=== PATIENT | female | born 1940 | race African-American/Black ===

== ENCOUNTER 2018-03-06 16:50 | Inpatient (IN) ==
[2018-03-06] MEDS ORDERED: MORPHINE 4 MG/1 ML VIAL IV STA (17:11)
[2018-03-06] MEDS ORDERED: ONDANSETRON 4 MG/2 ML VIAL IV STA (17:11)
[2018-03-06 17:30] LABS: Basophils % 0.3 % (0.0-0.8); Eosinophils # 0.1 10*3/uL (0.0-0.87); Eosinophils % 1.5 % (0.00-10.9); Hematocrit 39.9 VOL% (35.7-47.0); Hemoglobin 12.8 GM/DL (12.0-16.0); Immature Granulocytes % 0.4 %; Immature Granulocytes Absolute 0.03 #; Lymphocytes # 2.2 10*3/uL (1.4-4.0); Lymphocytes % 29.2 % (21.3-54.2); Mean Corpuscular HGB Conc 32.1 GM/DL (32-36); Mean Corpuscular Hemoglobin 30 PG (27-34); Mean Corpuscular Volume 94.8 FL (87-102); Mean Platelet Volume 9.5 FL (9.6-12.0); Monocytes # 0.5 10*3/uL (0.11-0.8); Monocytes % 7.3 % (1.7-12.7); Neutrophils # 4.5 10*3/uL (1.4-7.4); Neutrophils % 61.3 % (38.7-73.9); Platelet Count 286 T/CUMM (130-400); Red Blood Count 4.21 MC/CUMM (3.8-5.5); Red Cell Distribution Width 12.3 % (9.3-17.3); White Blood Count 7.4 T/CUMM (4-12)
[2018-03-06 17:39] LABS: PT Patient Result 10.1 SECS
[2018-03-06 17:47] LABS: Calcium 9.1 MG/DL (8.5-10.1); Osmolality,Calculated 280.3 MOS/KG (273-304); Potassium 4.2 MMOL/L (3.5-5.1)
[2018-03-06 17:54] LABS: Apearance,Urine CLEAR (Clear); Bacteria,Urine Occasional /HPF (Few); Bilirubin,Urine Negative (Negative); Blood, Urine Negative (Negative); Glucose,Urine (UA) Negative (Negative); Ketones,Urine Negative (Negative); Mucus,Urine Occasional /LPF (Occasional); Nitrite,Urine Negative (Negative); Protein,Urine Negative; RBC,Urine 4 /HPF (0-4); Urine Color Yellow (Yellow); Urine Specific Gravity 1.014 (1.001-1.035); WBC,Urine 1 /HPF (0-6)
[2018-03-06] MEDS ORDERED: ACETAMINOPHEN 325 MG TABLET PO PRN (20:01)
[2018-03-06] MEDS ORDERED: LACTULOSE 20 GM/30 ML UDCUP PO PRN (20:01)
[2018-03-06] MEDS ORDERED: DOCUSATE SODIUM 100 MG CAPSULE PO PRN (20:01)
[2018-03-06] MEDS ORDERED: ONDANSETRON 4 MG/2 ML VIAL IV PRN (20:01)
[2018-03-06] MEDS ORDERED: BISACODYL 5 MG TABLET PO PRN (20:01)
[2018-03-06] MEDS: MORPHINE 4 MG/1 ML VIAL IV PRN (20:23)
[2018-03-06] MEDS: ALBUTEROL/IPRATROPIUM 3 ML NEB RESP TX SCH ×2 (20:27→23:04)
[2018-03-06] MEDS ORDERED: DORZOLAMIDE/TIMOLOL OPH SOLN 10 ML BOTTLE LEFT EYE SCH (21:00)
[2018-03-06] MEDS: CYCLOBENZAPRINE 10 MG TABLET PO SCH (22:09)
[2018-03-06] MEDS: NORTRIPTYLINE 25 MG CAPSULE PO SCH (22:09)
[2018-03-06] MEDS: busPIRone 10 MG TABLET PO SCH (22:09)
[2018-03-06] MEDS: PANTOPRAZOLE 20 MG TABLET PO SCH (22:09)
[2018-03-06] MEDS: SIMVASTATIN 80 MG TABLET PO SCH (22:09)
[2018-03-06] MEDS: GABAPENTIN 300 MG CAPSULE PO SCH (22:09)
[2018-03-06] MEDS: BRIMONIDINE 0.2% OPH SOLN 5 ML BOTTLE LEFT EYE SCH (22:10)
[2018-03-06] MEDS: LATANOPROST 0.005% OPH SOLN 2.5 ML BOTTLE LEFT EYE SCH (22:10)
[2018-03-06] MEDS: SODIUM CHLORIDE 0.45% 1,000 ML IV SCH (22:11)
[2018-03-07] MEDS: ALBUTEROL/IPRATROPIUM 3 ML NEB RESP TX SCH ×5 (03:09→19:53)
[2018-03-07] MEDS: MORPHINE 4 MG/1 ML VIAL IV PRN (04:35)
[2018-03-07] MEDS: SODIUM CHLORIDE 0.45% 1,000 ML IV SCH ×4 (04:54→21:10)
[2018-03-07] MEDS ORDERED: PANTOPRAZOLE 40 MG TABLET PO SCH (09:00)
[2018-03-07] MEDS: PANTOPRAZOLE 20 MG TABLET PO SCH ×2 (09:19→21:00)
[2018-03-07] MEDS: FAMOTIDINE 20 MG TABLET PO SCH (09:19)
[2018-03-07] MEDS: busPIRone 10 MG TABLET PO SCH ×2 (09:19→21:00)
[2018-03-07] MEDS: CYCLOBENZAPRINE 10 MG TABLET PO SCH ×3 (09:19→21:00)
[2018-03-07] MEDS: DILTIAZEM CD 240 MG CAPSULE PO SCH (09:19)
[2018-03-07] MEDS: NICOTINE 21 MG/24 HR PATCH TRANSDERM SCH (09:20)
[2018-03-07] MEDS: BRIMONIDINE 0.2% OPH SOLN 5 ML BOTTLE LEFT EYE SCH ×3 (09:21→20:59)
[2018-03-07] MEDS: GABAPENTIN 300 MG CAPSULE PO SCH (20:59)
[2018-03-07] MEDS: NORTRIPTYLINE 25 MG CAPSULE PO SCH (20:59)
[2018-03-07] MEDS: LATANOPROST 0.005% OPH SOLN 2.5 ML BOTTLE LEFT EYE SCH (20:59)
[2018-03-07] MEDS: SIMVASTATIN 80 MG TABLET PO SCH (21:00)
[2018-03-08] MEDS: ALBUTEROL/IPRATROPIUM 3 ML NEB RESP TX SCH (02:45)
[2018-03-08] MEDS: SODIUM CHLORIDE 0.45% 1,000 ML IV SCH ×3 (03:41→20:58)
[2018-03-08 07:12] LABS: Basophils % 0.3 % (0.0-0.8); Eosinophils % 0.3 % (0.00-10.9); Hematocrit 34.3 VOL% (35.7-47.0); Immature Granulocytes % 0.4 %; Immature Granulocytes Absolute 0.04 #; Lymphocytes # 1.8 10*3/uL (1.4-4.0); Lymphocytes % 17.3 % (21.3-54.2); Mean Corpuscular HGB Conc 32.1 GM/DL (32-36); Mean Corpuscular Hemoglobin 30 PG (27-34); Mean Corpuscular Volume 94.5 FL (87-102); Mean Platelet Volume 10.2 FL (9.6-12.0); Monocytes # 0.8 10*3/uL (0.11-0.8); Monocytes % 7.8 % (1.7-12.7); Neutrophils # 7.7 10*3/uL (1.4-7.4); Neutrophils % 73.9 % (38.7-73.9); Platelet Count 229 T/CUMM (130-400); Red Blood Count 3.63 MC/CUMM (3.8-5.5); Red Cell Distribution Width 12.2 % (9.3-17.3); White Blood Count 10.4 T/CUMM (4-12)
[2018-03-08 07:27] LABS: Calcium 8.8 MG/DL (8.5-10.1); Osmolality,Calculated 271.8 MOS/KG (273-304); Potassium 4.2 MMOL/L (3.5-5.1)
[2018-03-08] MEDS ORDERED: ceFAZolin 1,000 MG VIAL ONE (08:18)
[2018-03-08] MEDS ORDERED: ceFAZolin 1,000 MG VIAL IM SCH (09:30)
[2018-03-08] MEDS ORDERED: fentaNYL 100 MCG/2 ML VIAL ONE (09:42)
[2018-03-08] MEDS ORDERED: DESFLURANE 1 UNIT/15 MINUTE INH ONE (09:42)
[2018-03-08] MEDS ORDERED: GLYCOPYRROLATE 0.4 MG/2 ML VIAL ONE (09:42)
[2018-03-08] MEDS ORDERED: ETOMIDATE 40 MG/20 ML VIAL IV ONE (09:42)
[2018-03-08] MEDS ORDERED: ROCURONIUM 100 MG/10 ML VIAL IV ONE (09:43)
[2018-03-08] MEDS ORDERED: NEOSTIGMINE 10 MG/10 ML VIAL ONE (09:43)
[2018-03-08] MEDS: BRIMONIDINE 0.2% OPH SOLN 5 ML BOTTLE LEFT EYE SCH ×3 (11:19→20:49)
[2018-03-08] MEDS: CYCLOBENZAPRINE 10 MG TABLET PO SCH ×3 (11:19→20:48)
[2018-03-08] MEDS: busPIRone 10 MG TABLET PO SCH ×2 (11:19→20:48)
[2018-03-08] MEDS: DILTIAZEM CD 240 MG CAPSULE PO SCH (11:19)
[2018-03-08] MEDS: NICOTINE 21 MG/24 HR PATCH TRANSDERM SCH (11:19)
[2018-03-08] MEDS: PANTOPRAZOLE 20 MG TABLET PO SCH ×2 (11:20→20:48)
[2018-03-08] MEDS: FAMOTIDINE 20 MG TABLET PO SCH (11:20)
[2018-03-08] MEDS: MORPHINE 4 MG/1 ML VIAL IV PRN (14:30)
[2018-03-08] MEDS: ceFAZolin 1,000 MG in SYRINGE 1 EACH IV SCH (17:37)
[2018-03-08] MEDS: ZALEPLON 5 MG CAPSULE PO PRN (20:48)
[2018-03-08] MEDS: GABAPENTIN 300 MG CAPSULE PO SCH (20:48)
[2018-03-08] MEDS: NORTRIPTYLINE 25 MG CAPSULE PO SCH (20:48)
[2018-03-08] MEDS: SIMVASTATIN 80 MG TABLET PO SCH (20:48)
[2018-03-08] MEDS: LATANOPROST 0.005% OPH SOLN 2.5 ML BOTTLE LEFT EYE SCH (20:49)
[2018-03-09] MEDS: ceFAZolin 1,000 MG in SYRINGE 1 EACH IV SCH ×3 (02:40→18:01)
[2018-03-09] MEDS: SODIUM CHLORIDE 0.45% 1,000 ML IV SCH ×3 (03:20→20:23)
[2018-03-09 06:55] LABS: Basophils % 0.2 % (0.0-0.8); Eosinophils % 0.3 % (0.00-10.9); Hematocrit 28.6 VOL% (35.7-47.0); Hemoglobin 9.3 GM/DL (12.0-16.0); Immature Granulocytes % 0.5 %; Immature Granulocytes Absolute 0.06 #; Lymphocytes # 2.1 10*3/uL (1.4-4.0); Lymphocytes % 17.8 % (21.3-54.2); Mean Corpuscular HGB Conc 32.5 GM/DL (32-36); Mean Corpuscular Hemoglobin 30 PG (27-34); Mean Corpuscular Volume 92.3 FL (87-102); Monocytes # 1.2 10*3/uL (0.11-0.8); Monocytes % 10.3 % (1.7-12.7); Neutrophils # 8.2 10*3/uL (1.4-7.4); Neutrophils % 70.9 % (38.7-73.9); Platelet Count 180 T/CUMM (130-400); Red Cell Distribution Width 12.2 % (9.3-17.3); White Blood Count 11.5 T/CUMM (4-12)
[2018-03-09 07:13] LABS: Calcium 8.7 MG/DL (8.5-10.1); Osmolality,Calculated 266.2 MOS/KG (273-304); Potassium 3.7 MMOL/L (3.5-5.1)
[2018-03-09] MEDS: BRIMONIDINE 0.2% OPH SOLN 5 ML BOTTLE LEFT EYE SCH ×3 (09:36→20:25)
[2018-03-09] MEDS: NICOTINE 21 MG/24 HR PATCH TRANSDERM SCH (09:37)
[2018-03-09] MEDS: busPIRone 10 MG TABLET PO SCH ×2 (09:38→20:08)
[2018-03-09] MEDS: PANTOPRAZOLE 20 MG TABLET PO SCH ×2 (09:39→20:00)
[2018-03-09] MEDS: FAMOTIDINE 20 MG TABLET PO SCH (09:39)
[2018-03-09] MEDS: CYCLOBENZAPRINE 10 MG TABLET PO SCH ×3 (09:39→20:08)
[2018-03-09] MEDS ORDERED: SODIUM CHLORIDE 0.9% 1,000 ML IV ONE (14:43)
[2018-03-09] MEDS: DILTIAZEM CD 240 MG CAPSULE PO SCH (15:29)
[2018-03-09 19:48] LABS: Apearance,Urine Slightly Hazy (Clear); Bilirubin,Urine Negative (Negative); Blood, Urine Large mg/dL (Negative); Glucose,Urine (UA) 50 mg/dL (Negative); Ketones,Urine Negative (Negative); Mucus,Urine Occasional /LPF (Occasional); Nitrite,Urine Negative (Negative); Protein,Urine Negative; RBC,Urine 39 /HPF (0-4); Squamous Epithelial Cell,Urine Occasional /HPF (0-10); Urine Color Yellow (Yellow); Urine Specific Gravity 1.009 (1.001-1.035); Urine Urobilinogen < 2.0 EU/DL (0.2-1.0); WBC,Urine 37 /HPF (0-6)
[2018-03-09] MEDS: ZALEPLON 5 MG CAPSULE PO PRN (19:55)
[2018-03-09] MEDS: NORTRIPTYLINE 25 MG CAPSULE PO SCH (20:08)
[2018-03-09] MEDS: SIMVASTATIN 80 MG TABLET PO SCH (20:08)
[2018-03-09] MEDS: GABAPENTIN 300 MG CAPSULE PO SCH (20:08)
[2018-03-09] MEDS: CHLORHEXIDINE 0.12% ORAL RINSE 60 ML BOTTLE SWISH/SPIT SCH (20:19)
[2018-03-09] MEDS: LATANOPROST 0.005% OPH SOLN 2.5 ML BOTTLE LEFT EYE SCH (20:25)
[2018-03-10] MEDS: ZALEPLON 5 MG CAPSULE PO PRN (01:54)
[2018-03-10] MEDS: ceFAZolin 1,000 MG in SYRINGE 1 EACH IV SCH ×3 (02:17→18:24)
[2018-03-10] MEDS: SODIUM CHLORIDE 0.45% 1,000 ML IV SCH ×3 (02:19→21:30)
[2018-03-10 05:22] LABS: Basophils % 0.1 % (0.0-0.8); Eosinophils # 0.1 10*3/uL (0.0-0.87); Eosinophils % 1.3 % (0.00-10.9); Hemoglobin 8.6 GM/DL (12.0-16.0); Immature Granulocytes % 0.6 %; Immature Granulocytes Absolute 0.06 #; Lymphocytes # 1.8 10*3/uL (1.4-4.0); Mean Corpuscular HGB Conc 33.1 GM/DL (32-36); Mean Corpuscular Hemoglobin 30 PG (27-34); Mean Corpuscular Volume 91.2 FL (87-102); Mean Platelet Volume 10.1 FL (9.6-12.0); Monocytes # 1.1 10*3/uL (0.11-0.8); Monocytes % 10.1 % (1.7-12.7); Neutrophils # 7.4 10*3/uL (1.4-7.4); Neutrophils % 70.9 % (38.7-73.9); Platelet Count 180 T/CUMM (130-400); Red Blood Count 2.85 MC/CUMM (3.8-5.5); Red Cell Distribution Width 12.3 % (9.3-17.3); White Blood Count 10.4 T/CUMM (4-12)
[2018-03-10 05:39] LABS: Calcium 8.6 MG/DL (8.5-10.1); Osmolality,Calculated 278.4 MOS/KG (273-304); Potassium 3.5 MMOL/L (3.5-5.1)
[2018-03-10] MEDS: busPIRone 10 MG TABLET PO SCH ×2 (10:05→21:11)
[2018-03-10] MEDS: CYCLOBENZAPRINE 10 MG TABLET PO SCH ×3 (10:06→21:11)
[2018-03-10] MEDS: NICOTINE 21 MG/24 HR PATCH TRANSDERM SCH (10:07)
[2018-03-10] MEDS: FAMOTIDINE 20 MG TABLET PO SCH (10:13)
[2018-03-10] MEDS: PANTOPRAZOLE 20 MG TABLET PO SCH ×2 (10:15→21:11)
[2018-03-10] MEDS: CHLORHEXIDINE 0.12% ORAL RINSE 60 ML BOTTLE SWISH/SPIT SCH ×2 (10:19→21:12)
[2018-03-10] MEDS: BRIMONIDINE 0.2% OPH SOLN 5 ML BOTTLE LEFT EYE SCH ×3 (10:27→21:12)
[2018-03-10] MEDS ORDERED: SODIUM CHLORIDE 0.9% 1,000 ML IV PRN (11:04)
[2018-03-10] MEDS ORDERED: DEXTROSE 50% 25 GM/50 ML VIAL IV PRN (15:18)
[2018-03-10] MEDS ORDERED: GLUCAGON 1 MG VIAL IM PRN (15:18)
[2018-03-10] MEDS: INSULIN LISPRO 100 UNIT/ML SUBCUT SCH ×2 (17:04→20:14)
[2018-03-10] MEDS: GABAPENTIN 300 MG CAPSULE PO SCH (21:11)
[2018-03-10] MEDS: SIMVASTATIN 80 MG TABLET PO SCH (21:11)
[2018-03-10] MEDS: NORTRIPTYLINE 25 MG CAPSULE PO SCH (21:11)
[2018-03-10] MEDS: LATANOPROST 0.005% OPH SOLN 2.5 ML BOTTLE LEFT EYE SCH (21:12)
[2018-03-11] MEDS: ceFAZolin 1,000 MG in SYRINGE 1 EACH IV SCH ×3 (02:05→18:04)
[2018-03-11] MEDS: SODIUM CHLORIDE 0.45% 1,000 ML IV SCH ×4 (04:10→18:04)
[2018-03-11 06:51] LABS: Basophils % 0.2 % (0.0-0.8); Eosinophils # 0.1 10*3/uL (0.0-0.87); Eosinophils % 0.6 % (0.00-10.9); Hematocrit 35.3 VOL% (35.7-47.0); Immature Granulocytes % 0.5 %; Immature Granulocytes Absolute 0.05 #; Lymphocytes # 1.2 10*3/uL (1.4-4.0); Lymphocytes % 10.9 % (21.3-54.2); Mean Corpuscular HGB Conc 33.1 GM/DL (32-36); Mean Corpuscular Hemoglobin 30 PG (27-34); Mean Corpuscular Volume 89.8 FL (87-102); Mean Platelet Volume 9.7 FL (9.6-12.0); Monocytes # 0.9 10*3/uL (0.11-0.8); Monocytes % 8.5 % (1.7-12.7); Neutrophils # 8.8 10*3/uL (1.4-7.4); Neutrophils % 79.3 % (38.7-73.9); Platelet Count 202 T/CUMM (130-400); Red Cell Distribution Width 13.5 % (9.3-17.3); White Blood Count 11.1 T/CUMM (4-12)
[2018-03-11 07:07] LABS: Hemoglobin 11.7 GM/DL (12.0-16.0); Red Blood Count 3.93 MC/CUMM (3.8-5.5)
[2018-03-11 07:20] LABS: Calcium 8.8 MG/DL (8.5-10.1); Osmolality,Calculated 275.5 MOS/KG (273-304); Potassium 3.1 MMOL/L (3.5-5.1)
[2018-03-11] MEDS: busPIRone 10 MG TABLET PO SCH ×2 (09:15→20:56)
[2018-03-11] MEDS: BRIMONIDINE 0.2% OPH SOLN 5 ML BOTTLE LEFT EYE SCH ×3 (09:15→20:57)
[2018-03-11] MEDS: FAMOTIDINE 20 MG TABLET PO SCH (09:15)
[2018-03-11] MEDS: PANTOPRAZOLE 20 MG TABLET PO SCH ×2 (09:15→20:56)
[2018-03-11] MEDS: CYCLOBENZAPRINE 10 MG TABLET PO SCH ×3 (09:15→20:56)
[2018-03-11] MEDS: CHLORHEXIDINE 0.12% ORAL RINSE 60 ML BOTTLE SWISH/SPIT SCH ×2 (09:15→20:57)
[2018-03-11] MEDS: NICOTINE 21 MG/24 HR PATCH TRANSDERM SCH (09:15)
[2018-03-11] MEDS: INSULIN LISPRO 100 UNIT/ML SUBCUT SCH ×4 (09:29→20:08)
[2018-03-11] MEDS ORDERED: POTASSIUM CHLORIDE 20 MEQ TABLET PO ONE (13:46)
[2018-03-11] MEDS: GABAPENTIN 300 MG CAPSULE PO SCH (20:56)
[2018-03-11] MEDS: NORTRIPTYLINE 25 MG CAPSULE PO SCH (20:56)
[2018-03-11] MEDS: LATANOPROST 0.005% OPH SOLN 2.5 ML BOTTLE LEFT EYE SCH (20:56)
[2018-03-11] MEDS: SIMVASTATIN 80 MG TABLET PO SCH (20:56)
[2018-03-12] MEDS: SODIUM CHLORIDE 0.45% 1,000 ML IV SCH ×2 (01:17→13:01)
[2018-03-12] MEDS: ceFAZolin 1,000 MG in SYRINGE 1 EACH IV SCH ×2 (04:40→13:20)
[2018-03-12] MEDS ORDERED: metFORMIN 500 MG TABLET PO SCH (08:00)
[2018-03-12] MEDS: busPIRone 10 MG TABLET PO SCH (08:43)
[2018-03-12] MEDS: FAMOTIDINE 20 MG TABLET PO SCH (08:43)
[2018-03-12] MEDS: CYCLOBENZAPRINE 10 MG TABLET PO SCH ×2 (08:44→16:38)
[2018-03-12] MEDS: PANTOPRAZOLE 20 MG TABLET PO SCH (08:44)
[2018-03-12] MEDS: NICOTINE 21 MG/24 HR PATCH TRANSDERM SCH (08:48)
[2018-03-12] MEDS: INSULIN LISPRO 100 UNIT/ML SUBCUT SCH ×3 (09:25→16:38)
[2018-03-12] MEDS: BRIMONIDINE 0.2% OPH SOLN 5 ML BOTTLE LEFT EYE SCH ×2 (09:25→16:38)
[2018-03-12] MEDS: CHLORHEXIDINE 0.12% ORAL RINSE 60 ML BOTTLE SWISH/SPIT SCH (09:26)
[2018-03-12] MEDS ORDERED: SKIN HEALING OINT (AQUAPHOR) 50 GM TUBE TOP SCH (10:30)
[2018-03-12] MEDS: POTASSIUM CHLORIDE 20 MEQ TABLET PO SCH ×2 (11:23→16:38)
[2018-03-12] MEDS ORDERED: CLOPIDOGREL 75 MG TABLET PO SCH (12:00)
[2018-03-12 16:17] VITALS: BP 110/60
[2018-03-12] MEDS ORDERED: ENOXAPARIN 40 MG/0.4 ML SYRINGE SUBCUT SCH (21:00)
== END 2018-03-12 16:45 | DRG 481 ==
LOC: EDBD → EDUNIT# → N.ED 16:50 → N.EDINP 18:11 → SUATTDRO 18:11 → N.3E 19:29
PROVIDERS: ADMIT Internal Medicine; ATTEND Internal Medicine